=== PATIENT | female | born 1970 | race Caucasian/White ===

== ENCOUNTER 2017-10-19 06:58 | Emergency (ER) | payer OTHER, BC ==
[2015-02-27 22:50] VITALS: BMI 24.3
[~2017-10-19 06:58] MED LIST: PERCOCET 10/3251 TA1 PO
== END 2017-10-19 07:23 | disposition home or self-care (01) ==
LOC: D.ER 06:58
DX: J02.9 Acute pharyngitis, unspecified (principal); F17.200 Nicotine dependence, unspecified, uncomplicated

== ENCOUNTER 2018-10-18 19:08 | Observation (INO) | payer OTHER ==
[2018-10-18 19:45] LABS: BASOPHILS 0.7 % (0-2); EOSINOPHILS 3.5 % (0-7); HEMATOCRIT 27.4 % (36.0-48.0); HEMOGLOBIN 7.9 g/dL (12-16); IMMATURE GRANULOCYTES 0.2 % (0-5); LYMPHOCYTES 27.3 % (15-50); MCHC 28.8 g/dL (31.0-37.0); MCV 57.2 fL (80.0-100.0); MONOCYTES 12.2 % (2-11); NEUTROPHILS 56.1 % (40-80); RBC 4.79 10x6/uL (4.00-5.40); RDW 20.2 % (11.5-14.5); WBC 9.5 10x3/uL (4.8-10.8)
[2018-10-18 19:53] LABS: MCH 16.5 pg (26.0-34.0); PLATELET COUNT 503 10x3/uL (130-400)
[2018-10-18 19:59] LABS: ALBUMIN 3.2 g/dL (3.4-5.0); ALKALINE PHOSPHATASE 83 U/L (46-116); ALT (SGPT) 29 U/L (10-68); BILIRUBIN - TOTAL 0.16 mg/dL (0.2-1.3); CALC OSMOLALITY 287 mosm/kg (275-300); CALCIUM 8.2 mg/dL (8.5-10.1); CARBON DIOXIDE 26.2 mmol/L (21.0-32.0); CHLORIDE - SERUM 109 mmol/L (98-107); CREATININE - SERUM 0.9 mg/dL (0.6-1.3); GLUCOSE 107 mg/dL (74-106); POTASSIUM - SERUM 3.6 mmol/L (3.5-5.1); PROTEIN - SERUM 6.3 g/dL (6.4-8.2); SODIUM 142 mmol/L (136-145); UREA NITROGEN 27 mg/dL (7-18); eGFR NON AFRICAN AMERICAN 70 mL/min (90-120)
[2018-10-18 20:03] LABS: AMYLASE - SERUM 41 U/L (25-115); LIPASE 252 U/L (73-393)
[2018-10-18 20:04] LABS: TROPONIN-I < 0.017 ng/mL (0.000-0.060)
--- NOTE | 2018-10-18 20:08 | NUR ---
PT LEFT ED VIA STRETCHER FOR CT.
--- NOTE | 2018-10-18 20:36 | NUR ---
PT RETURNED FROM CT VIA STRETCHER.
--- NOTE | 2018-10-18 21:16 | NUR ---
PT AMBULATED TO RESTROOM. PT REPORTS SHE WAS UNABLE PROVIDE URINE SPECIMEN. EDP NOTIFIED.
[2018-10-18 21:30] VITALS: BP 115/59
--- NOTE | 2018-10-18 22:02 | NUR ---
PT RESTING ON BED, NO S/S OF ACUTE DISTRESS NOTED. PT FAMILY AT BEDSIDE.
--- NOTE | 2018-10-18 22:23 | NUR ---
PT AMBULATED TO RESTROOM WITH A STEADY GAIT. PT URINE SPECIMEN SENT TO LAB.
[2018-10-18 22:34] LABS: APPEARANCE CLEAR (CLEAR); BILIRUBIN NEGATIVE (NEGATIVE); COLOR YELLOW (YELLOW); GLUCOSE NEGATIVE (NEGATIVE); KETONE NEGATIVE (NEGATIVE); NITRITE NEGATIVE (NEGATIVE); PROTEIN NEGATIVE (NEGATIVE); SPECIFIC GRAVITY 1.015 (1.005-1.020); UROBILINOGEN NORMAL (NORMAL); WHITE CELLS - URINE OCC /hpf (0-5)
[2018-10-18 22:35] LABS: EPITHELIAL CELLS 0-5 /hpf (0-5); RED CELLS - URINE 0-5 /hpf (0-5)
--- NOTE | 2018-10-19 00:20 | NUR ---
RECEIVED PT TO FLOOR FROM ER VIA WHEELCHAIR. REVIEWED HOME MEDS AND HISTORY. VITALS SIGNS STABLE. COMPLETE ASSESSMENT PER FLOW-SHEET. PT FINISHED MAG CITRATE AND ATE HALF SANDWICH. NO OTHER NEEDS. FAMILY LEFT FOR THE NIGHT. PT SIGNED BLOOD CONSENT FOR TRANSFUSION. PT FALLING ASLEEP. LAB TO CALL WHEN BLOOD IS READY. WILL CONTINUE TO MONITOR.
[2018-10-19] MEDS ORDERED: IBUPROFEN600 MG PO (00:22)
[2018-10-19 00:46] LABS: % SATURATION 4 % (15-55); IRON 16 ug/dl (35-150); TOTAL IRON BIND CAPACITY 400 ug/dl (260-445); UNSAT IRON BIND CAPACITY 384 ug/dl (150-375)
--- NOTE | 2018-10-19 01:50 | NUR ---
PRBC INFUSION STARTED. VITALS SIGNS STABLE. PT SLEEPING. AFTER BLOOD INFUSING 15 MINUTES, VITALS SIGNS STABLE. INCREASED RATE OF INFUSION. NO S/S OF DISTRESS OR REACTION. WILL CONTINUE TO MONITOR.
[2018-10-19 02:09] VITALS: BP 139/68; BMI 24.3
[2018-10-19 06:36] LABS: BASOPHILS 0.7 % (0-2); EOSINOPHILS 4.8 % (0-7); HEMATOCRIT 28.4 % (36.0-48.0); HEMOGLOBIN 8.4 g/dL (12-16); IMMATURE GRANULOCYTES 0.1 % (0-5); LYMPHOCYTES 29.8 % (15-50); MCHC 29.6 g/dL (31.0-37.0); MCV 58.6 fL (80.0-100.0); MEAN PLATELET VOLUME 8.9 fL (7.4-10.4); MONOCYTES 10.8 % (2-11); NEUTROPHILS 53.8 % (40-80); PLATELET COUNT 440 10x3/uL (130-400); RBC 4.85 10x6/uL (4.00-5.40); RDW 22.6 % (11.5-14.5)
[2018-10-19 06:37] LABS: MCH 17.3 pg (26.0-34.0)
--- NOTE | 2018-10-19 07:29 | NUR ---
PT LYING IN BED, ACTIVE BOWEL SOUNDS X4. PT STATED HAD A BM THIS MORNING AND WAS A PRETY GOOD SIZE, PT IS PASSING A LOT OF GAS. INQUIRED ON WHEN BREAKFAST WAS SERVED STATED SHE IS STARVING. BED IN LOW POSITION, CL IN REACH. CONTINUE WITH PLAN OF CARE
[2018-10-19 10:35] LABS: ALBUMIN 2.9 g/dL (3.4-5.0); ALKALINE PHOSPHATASE 66 U/L (46-116); ALT (SGPT) 41 U/L (10-68); BILIRUBIN - TOTAL 0.21 mg/dL (0.2-1.3); CALC OSMOLALITY 281 mosm/kg (275-300); CALCIUM 7.8 mg/dL (8.5-10.1); CARBON DIOXIDE 21.6 mmol/L (21.0-32.0); CHLORIDE - SERUM 109 mmol/L (98-107); CREATININE - SERUM 0.8 mg/dL (0.6-1.3); GLUCOSE 71 mg/dL (74-106); POTASSIUM - SERUM 4.2 mmol/L (3.5-5.1); PROTEIN - SERUM 5.7 g/dL (6.4-8.2); SODIUM 141 mmol/L (136-145); UREA NITROGEN 22 mg/dL (7-18); eGFR NON AFRICAN AMERICAN 80 mL/min (90-120)
[2018-10-19 12:16] VITALS: BP 125/68
--- NOTE | 2018-10-19 13:10 | NUR ---
PT SITTING UP IN BED, NIECE AT BEDSIDE, REQUESTED PAIN MEDICINE, ADMINISTERED PRN PAIN MED. NO OTHER NEEDS VOICED, CONTINUE WITH PLAN OF CARE
[2018-10-19 16:40] VITALS: BP 140/70
--- NOTE | 2018-10-19 17:38 | NUR ---
UP AD KAYLAN. COMPLAINS OF ABDOMINAL PAIN AND RECEIVES MORPHINE PRN PAIN. SITS UP IN BED EATING DINNER. INSTRUCTED ON USE OF CALL LIGHT FOR ASSIST.
--- NOTE | 2018-10-19 18:40 | NUR ---
PATIENT IN BED WITH IV INTACT. NO COMPLAINTS OR SIGNS OF DISTRESS. CALL LIGHTS WITHIN REACH.
[2018-10-19 20:00] VITALS: BP 133/59
[2018-10-20] VITALS (7 sets, daily range): BP systolic 130–141; BP diastolic 58–76
[2018-10-20 04:36] LABS: BASOPHILS 0.4 % (0-2); EOSINOPHILS 3.4 % (0-7); HEMATOCRIT 28.1 % (36.0-48.0); HEMOGLOBIN 8.2 g/dL (12-16); IMMATURE GRANULOCYTES 0.2 % (0-5); LYMPHOCYTES 25.6 % (15-50); MCH 17.2 pg (26.0-34.0); MCHC 29.2 g/dL (31.0-37.0); MCV 58.9 fL (80.0-100.0); MEAN PLATELET VOLUME 9.4 fL (7.4-10.4); MONOCYTES 11.3 % (2-11); NEUTROPHILS 59.1 % (40-80); PLATELET COUNT 459 10x3/uL (130-400); RBC 4.77 10x6/uL (4.00-5.40); RDW 22.2 % (11.5-14.5); WBC 11.6 10x3/uL (4.8-10.8)
[2018-10-20 05:18] LABS: ALBUMIN 2.7 g/dL (3.4-5.0); ALKALINE PHOSPHATASE 69 U/L (46-116); ALT (SGPT) 37 U/L (10-68); BILIRUBIN - TOTAL 0.16 mg/dL (0.2-1.3); CALCIUM 7.7 mg/dL (8.5-10.1); CARBON DIOXIDE 25.2 mmol/L (21.0-32.0); CHLORIDE - SERUM 110 mmol/L (98-107); CREATININE - SERUM 0.8 mg/dL (0.6-1.3); PROTEIN - SERUM 5.5 g/dL (6.4-8.2); SODIUM 142 mmol/L (136-145); eGFR NON AFRICAN AMERICAN 80 mL/min (90-120)
[2018-10-20 05:21] LABS: CALC OSMOLALITY 284 mosm/kg (275-300); GLUCOSE 114 mg/dL (74-106); POTASSIUM - SERUM 3.4 mmol/L (3.5-5.1); UREA NITROGEN 14 mg/dL (7-18)
[2018-10-20 12:32] LABS: PATH REVIEW PERIPHERAL SMEAR REVIEWED
--- NOTE | 2018-10-20 16:09 | NUR ---
DAUGHTER JAMIE HAS TAKEN RINGS X 2 WALLET AND PURSE WITH PT PERMISSION
--- NOTE | 2018-10-20 16:13 | NUR ---
PATIENT LEAVING FOR SURGERY STABLE AT THIS TIME.
--- NOTE | 2018-10-20 20:30 | NUR ---
PT LYING IN BED ASLEEP, NO SIGNS OF DISTRESS. AWAKENS TO VERBAL STIMULI. ALERT AND ORIENTED. STATES PAIN IN ABD 08/11. GAVE MORPHINE ORDERED. 3 LAP INCISIONS TO ABD W/ DRESSINGS CDI. IV RIGHT FA INFUSING NS @ 125. NO OTHER NEEDS OR COMPLAINTS AT THIS TIME. CL IN REACH
--- NOTE | 2018-10-21 00:15 | NUR ---
PT STATES PAIN 07/11. GAVE PERCOCET ORDERED. NO OTHER NEEDS OR COMPLAINTS AT THIS TIME. CL IN REACH
[2018-10-21 02:35] VITALS: BP 145/67
[2018-10-21 05:01] VITALS: BP 130/64
[2018-10-21 06:57] LABS: ALBUMIN 2.4 g/dL (3.4-5.0); ALKALINE PHOSPHATASE 78 U/L (46-116); ALT (SGPT) 30 U/L (10-68); CALC OSMOLALITY 281 mosm/kg (275-300); CALCIUM 7.9 mg/dL (8.5-10.1); CHLORIDE - SERUM 110 mmol/L (98-107); CREATININE - SERUM 0.8 mg/dL (0.6-1.3); GLUCOSE 89 mg/dL (74-106); POTASSIUM - SERUM 4.2 mmol/L (3.5-5.1); PROTEIN - SERUM 5.4 g/dL (6.4-8.2); SODIUM 142 mmol/L (136-145); UREA NITROGEN 12 mg/dL (7-18); eGFR NON AFRICAN AMERICAN 80 mL/min (90-120)
[2018-10-21 06:58] LABS: BASOPHILS 0.5 % (0-2); EOSINOPHILS 2.7 % (0-7); HEMATOCRIT 28.9 % (36.0-48.0); HEMOGLOBIN 8.3 g/dL (12-16); IMMATURE GRANULOCYTES 0.2 % (0-5); LYMPHOCYTES 24.6 % (15-50); MCHC 28.7 g/dL (31.0-37.0); MCV 59.5 fL (80.0-100.0); PLATELET COUNT 426 10x3/uL (130-400); RBC 4.86 10x6/uL (4.00-5.40); RDW 22.8 % (11.5-14.5); WBC 9.6 10x3/uL (4.8-10.8)
[2018-10-21 07:04] LABS: MCH 17.1 pg (26.0-34.0)
[2018-10-21 07:34] LABS: FOLATE (FOLIC ACID) - SERUM 5.2 ng/mL (>3.0)
--- NOTE | 2018-10-21 08:08 | NUR ---
PT LYING IN BED ON RT SIDE, EVEN RISE AND FALL OF CHEST, EASILY AWAKENED FOR ASSESSMENT. NO NEEDS VOICED CONTINUE WITH PLAN OF CARE
[2018-10-21 09:59] VITALS: BP 128/65
--- NOTE | 2018-10-21 10:56 | NUR ---
STRUCTURAL IRON WORKER NOTE-- PT PENDING DISCHARGE PER PRIMARY MD WILL CONITUE CARE PLAN UNTIL DISCHARGE.
[2018-10-21] MEDS ORDERED: HYDROCODON-ACE1 EAC7 PO (12:26)
[2018-10-21] MEDS ORDERED: MIRALAX17 GM PO (12:32)
--- NOTE | 2018-10-21 15:07 | NUR ---
PT DC HOME, WENT OVER PT DC INSTRUCTIONS, MEDS AND FOLLOW UP APPOINTMENTS. ALL QUESTIONS ASKED.
[2018-10-22 22:07] LABS: OVA + PARASITE EXAM Final report (())
--- NOTE | 2018-10-28 16:15 | OP ---
PATIENT NAME: JOSE OWUSU MEDICAL RECORD: [id number] :66 LOCATION:D.MS [id number] ADMISSION DATE:10/18/18 SURGEON: FOSTER SHAHID MD DATE OF OPERATION: 10/20/2018 PREOPERATIVE DIAGNOSES: 1. Right lower quadrant pain. 2. Ovarian mass. POSTOPERATIVE DIAGNOSES: 1. Right lower quadrant pain. 2. Right ovarian cyst. PROCEDURE PERFORMED: 1. Diagnostic laparoscopy. 2. Right salpingo-oophorectomy. 3. Left salpingectomy. SURGEON: Foster Shahid MD AUTOMATIC EMBROIDERY MACHINE TENDER: Kyaw Allred. ANESTHESIA: General. FINDINGS: Uterus is slightly enlarged and irregular contour consistent with fibroids. Both tubes are interrupted bilaterally, but appear otherwise unremarkable. Left ovary is unremarkable. Right ovary has a 5-cm simple appearing cyst. The pathology segments of right and left tube with right ovary, that specimens were removed SPECIMENS REMOVED: Right and left tube with right ovary. SPECIMEN DISPOSITION: Pathology. ESTIMATED BLOOD LOSS: Minimal. FLUIDS: 400 lactated Ringer's. URINE OUTPUT: Quantity sufficient void prior to this procedure. COMPLICATIONS: None. DRAINS: None. INDICATIONS: The patient is a 48-year-old female admitted to the hospital with right lower quadrant pain and constipation. The patient has had a bowel movement and continues to have pain. On further workup, the patient was found on CT and subsequent ultrasound to have a large simple appearing mass in the right adnexa. After discussion with the patient, she is consented for a diagnostic laparoscopy to address right lower quadrant pain and investigate mass. DESCRIPTION OF PROCEDURE: After informed consent was assured, the patient was taken to the operating room where anesthetic was obtained. The patient is now prepped and draped in the usual sterile fashion. Attention was directed to the OPERATIVE REPORT [id number] JOSE OWUSU umbilicus where an incision was made and a trocar inserted. Pneumoperitoneum was developed. Accessory ports were placed now in the midline. With the patient in Trendelenburg position and the bowel was swept free, the above findings were encountered. A second trocar was placed in the right lower quadrant. A grasper was inserted from the midline port and the hilum of the ovary grasped and the ovary is now elevated. Using the coagulation cutter, the infundibulopelvic ligament serially compressed, coagulated, and . This dissection was carried out underneath the ovary and concludes at the cornual region of the uterus, removing both tube and ovary of the right side. This is placed in an Endobag and the Endobag pulled into the 10-12 port, which is the midline port. Suction device was inserted after rupturing the cyst and the contents of the cyst extracted. The cyst and the ovary still contained within the Endobag is now removed from the abdomen. Specimen was passed from the field. The 10-12 trocar was reinserted after its removal with the ovarian mass and right tube. A grasper was now inserted and the left tube elevated from the midline. Using a coagulation cutter and starting at the cornual region, the ovary is removed from its attachment to left adnexa. The tube was removed and passed to the attendant. Pneumoperitoneum was released as the accessory trocars were removed. The primary trocar was now removed. All sites were closed with a subcuticular stitch and Dermabond. Sponge, lap, and needle counts correct times 2. The patient was awakened and went to the recovery area in stable condition. TRANSINT:[id number] Voice Confirmation ID: [id number] DOCUMENT ID: [id number] FOSTER SHAHID MD at 1615 CC: [id number] DICTATION DATE: 10/21/18915 PROFESSOR OF VOICE: 10/21/18 0949 DIS IN 10/21/18 [facility] [address] [place] [address]
== END 2018-10-21 15:14 | disposition home or self-care (01) ==
LOC: D.ER 19:08 → D.MS 23:25 → OBSVTIME 23:25 → D.MS 23:27 → D.ER 23:27 → D.MS 10-21 15:14
PROVIDERS: Family Medicine; Obstetrics & Gynecology; ADMIT Internal Medicine Nephrology
PROC: 0UT74ZZ Resection of Bilateral Fallopian Tubes, Percutaneous Endoscopic Approach (ICD-10-PCS; principal; 2018-10-20 17:00)
PROC: 0UT04ZZ Resection of Right Ovary, Percutaneous Endoscopic Approach (ICD-10-PCS; 2018-10-20 17:00)
DX: N83.201 Unspecified ovarian cyst, right side (principal); F17.213 Nicotine dependence, cigarettes, with withdrawal; D50.9 Iron deficiency anemia, unspecified; E11.9 Type 2 diabetes mellitus without complications; F41.9 Anxiety disorder, unspecified; R19.00 Intra-abdominal and pelvic swelling, mass and lump, unspecified site

== ENCOUNTER 2019-01-13 16:28 | Emergency (ER) | payer OTHER ==
[~2019-01-13] VITALS: Ht 172.7 cm; Wt 75.0 kg
[~2019-01-13 16:28] MED LIST changes: +HYDROCODON-ACE1 EAC7 PO; +IBUPROFEN600 MG PO; +MIRALAX17 GM PO
[2019-01-13 16:29] VITALS: Ht 172.7 cm; Wt 75.0 kg
[2019-01-13 16:56] LABS: BASOPHILS 1.1 % (0-2); EOSINOPHILS 4.6 % (0-7); HEMATOCRIT 31.3 % (36.0-48.0); HEMOGLOBIN 10.1 g/dL (12-16); IMMATURE GRANULOCYTES 0.1 % (0-5); MCH 20.2 pg (26.0-34.0); MCHC 32.3 g/dL (31.0-37.0); MCV 62.6 fL (80.0-100.0); MONOCYTES 14.1 % (2-11); NEUTROPHILS 54.1 % (40-80); PLATELET COUNT 421 10x3/uL (130-400); RDW 20.9 % (11.5-14.5); WBC 7.4 10x3/uL (4.8-10.8)
[2019-01-13 17:20] LABS: ALKALINE PHOSPHATASE 80 U/L (46-116); ALT (SGPT) 32 U/L (10-68); BILIRUBIN - TOTAL 0.27 mg/dL (0.2-1.3); CALC OSMOLALITY 286 mosm/kg (275-300); CALCIUM 7.7 mg/dL (8.5-10.1); CARBON DIOXIDE 25.3 mmol/L (21.0-32.0); CHLORIDE - SERUM 110 mmol/L (98-107); CREATININE - SERUM 0.7 mg/dL (0.6-1.3); GLUCOSE 94 mg/dL (74-106); POTASSIUM - SERUM 4.2 mmol/L (3.5-5.1); SODIUM 143 mmol/L (136-145); UREA NITROGEN 18 mg/dL (7-18); eGFR NON AFRICAN AMERICAN > 90 mL/min (90-120)
[2019-01-13 17:34] LABS: CKMB 1.4 U/L (0.0-3.6); CREATINE KINASE 118 UL (21-215); TROPONIN-I < 0.017 ng/mL (0.000-0.060)
[2019-01-13 21:44] LABS: UDS - AMPHET POSITIVE QUAL (NEGATIVE); UDS - BARB NEGATIVE QUAL (NEGATIVE); UDS - BENZO NEGATIVE QUAL (NEGATIVE); UDS - COCAINE NEGATIVE QUAL (NEGATIVE); UDS - OPIATE NEGATIVE QUAL (NEGATIVE); UDS - PCP NEGATIVE QUAL (NEGATIVE); UDS - THC NEGATIVE QUAL (NEGATIVE)
[2019-01-13] MEDS ORDERED: EZFE 200200 MG PO (22:45)
[2019-01-13 23:13] VITALS: BP 122/79
== END 2019-01-13 22:58 | disposition home or self-care (01) ==
LOC: D.ER 16:28
PROVIDERS: Family Medicine
DX: R53.1 Weakness (principal); D50.9 Iron deficiency anemia, unspecified

== ENCOUNTER 2019-02-22 13:04 | Emergency (ER) | payer OTHER ==
[~2019-02-22] VITALS: Ht 172.7 cm; Wt 79.5 kg
[~2019-02-22 13:04] MED LIST changes: +EZFE 200200 MG PO
[2019-02-22 13:11] VITALS: Ht 172.7 cm; Wt 79.5 kg
[2019-02-22 13:28] LABS: APPEARANCE CLEAR (CLEAR); BILIRUBIN NEGATIVE (NEGATIVE); COLOR STRAW (YELLOW); GLUCOSE NEGATIVE (NEGATIVE); KETONE NEGATIVE (NEGATIVE); NITRITE NEGATIVE (NEGATIVE); PROTEIN NEGATIVE (NEGATIVE)
[2019-02-22 13:52] LABS: BASOPHILS 0.8 % (0-2); HEMATOCRIT 31.8 % (36.0-48.0); HEMOGLOBIN 10.1 g/dL (12-16); IMMATURE GRANULOCYTES 0.2 % (0-5); MCH 20.1 pg (26.0-34.0); MCHC 31.8 g/dL (31.0-37.0); MCV 63.3 fL (80.0-100.0); MEAN PLATELET VOLUME 9.2 fL (7.4-10.4); MONOCYTES 11.6 % (2-11); NEUTROPHILS 58.4 % (40-80); PLATELET COUNT 495 10x3/uL (130-400); RBC 5.02 10x6/uL (4.00-5.40); RDW 17.2 % (11.5-14.5)
[2019-02-22 14:14] LABS: ALBUMIN 2.9 g/dL (3.4-5.0); ALKALINE PHOSPHATASE 88 U/L (46-116); ALT (SGPT) 36 U/L (10-68); BILIRUBIN - TOTAL 0.26 mg/dL (0.2-1.3); CALC OSMOLALITY 287 mosm/kg (275-300); CALCIUM 7.8 mg/dL (8.5-10.1); CHLORIDE - SERUM 110 mmol/L (98-107); CREATININE - SERUM 0.8 mg/dL (0.6-1.3); GLUCOSE 71 mg/dL (74-106); POTASSIUM - SERUM 3.6 mmol/L (3.5-5.1); PROTEIN - SERUM 6.3 g/dL (6.4-8.2); SODIUM 145 mmol/L (136-145); UREA NITROGEN 16 mg/dL (7-18); eGFR NON AFRICAN AMERICAN 80 mL/min (90-120)
[2019-02-22 14:20] LABS: CARBON DIOXIDE 25.7 mmol/L (21.0-32.0)
[2019-02-22] MEDS ORDERED: ZOFRAN ODT4 MG/UDTAB PO (17:06)
[2019-02-22] MEDS ORDERED: TAMIFLU75 MG PO (17:06)
[2019-02-22 17:38] VITALS: BP 161/80
== END 2019-02-22 17:39 | disposition home or self-care (01) ==
LOC: D.ER 13:04
PROVIDERS: Family Medicine
DX: B34.9 Viral infection, unspecified (principal); E86.0 Dehydration; R11.2 Nausea with vomiting, unspecified

== ENCOUNTER 2019-04-06 01:43 | Inpatient (IN) | payer OTHER ==
[~2019-04-06] VITALS: Ht 172.7 cm; Wt 78.6 kg
[2019-04-06] VITALS (7 sets, daily range): BP systolic 86–136; BP diastolic 32–71; Ht 172.7 cm; Wt 78.6 kg
--- NOTE | ~2019-04-06 | EC ---
PATIENT:JOSE OWUSU DATE OF SERVICE: 04/06/19 SEX: F MEDICAL RECORD: [id number] DATE OF : [birth year] LOCATION:D.M2 D.212 AGE OF PATIENT: 48 ADMISSION DATE: 04/06/19 REFERRING PHYSICIAN: INTERPRETING PHYSICIAN: AKIL GAONA MD ECHOCARDIOGRAM REPORT ECHO CHARGES 4 ECHO COMPLETE Date: 04/07/19 CLINICAL DIAGNOSIS: CHF ECHOCARDIOGRAPHIC MEASUREMENTS (adult normal given) AC root (d.<3.7cm) 3.7 cm LV Septum d (<1.2 cm> 0.6 cm Valve Excursion 1.9 cm LV Septum (systole) 1.1 cm Left Atria (s.<4.0cm> 2.9 cm LVPW d(<1.2cm) 0.9 cm RV (d.<2.3cm) 2.7 cm LVPW (sytole) 1.5 cm LV diastole(<5.6CM) 6.6 cm MV E-F(>70mm/sec) cm LV systole 4.7 cm LVOT Diameter 1.6 cm MV exc.(>10mm) cm Est.ejection fraction (50-75%) % DOPPLER: LVIT cm/sec A 91 cm/sec E 106 cm/sec LA cm/sec RVSP 32.8 mmHg LVOT 105 cm/sec AOP1/2T m/s Asc. Ao 161 cm/sec RVOT 64 cm/sec RA cm/sec PA 97 cm/sec AV Gradient Peak 10.4 mmHg AV Mean 6.7 mmHg AV Area cm MV Gradient Peak 6.3 mmHg MV Mean 2.2 mmHg MV Area cm COMMENTS: Shopper: Emelia FUENTES Bow Maker Machine Tender: Tramaine Gaona TAPE# PACS Pericardial Effusion N DATE OF SERVICE: 04/06/2019 FINDINGS: 1. Left ventricular chamber size is mildly dilated. Left ventricular systolic function is preserved. Overall ejection fraction is estimated at 60%. 2. Left atrium is within normal limits. Right atrium and right ventricular chamber sizes are as well within normal limit. 3. Valvular structures have normal structure and motion. 4. Doppler interrogation reveals mild aortic insufficiency, mild mitral regurgitation, and mild tricuspid regurgitation. No other valvular ECHOCARDIOGRAM REPORT [id number] JOSE OWUSU insufficiency or stenosis. Pulmonary systolic pressure is normal, estimated at 33 mmHg. 5. No evidence of pericardial effusion or left ventricular thrombus. TRANSINT:[id number] Voice Confirmation ID: [id number] DOCUMENT ID: [id number] AKIL GAONA MD CC: [id number] DICTATION DATE: 04/07/19 1216 STANDARDS ANALYST: 04/07/19 1238 ADM IN [facility] [address] [place] [place] [id number]
[~2019-04-06 01:43] MED LIST changes: +TAMIFLU75 MG PO; +ZOFRAN ODT4 MG/UDTAB PO
[2019-04-06 02:23] LABS: BASOPHILS 0.2 % (0-2); EOSINOPHILS 0.5 % (0-7); HEMATOCRIT 31.8 % (36.0-48.0); HEMOGLOBIN 10.4 g/dL (12-16); IMMATURE GRANULOCYTES 0.3 % (0-5); LYMPHOCYTES 11.2 % (15-50); MCHC 32.7 g/dL (31.0-37.0); MCV 61.2 fL (80.0-100.0); MEAN PLATELET VOLUME 9.7 fL (7.4-10.4); MONOCYTES 13.2 % (2-11); NEUTROPHILS 74.6 % (40-80); PLATELET COUNT 529 10x3/uL (130-400); RDW 16.3 % (11.5-14.5); WBC 17.4 10x3/uL (4.8-10.8)
[2019-04-06 02:41] LABS: APTT 33.8 SECONDS (22.8-39.4); INR 1.06 (0.85-1.17); PROTIME 13.3 SECONDS (11.6-15.0)
[2019-04-06 02:42] LABS: D-DIMER-QUANTITATIVE 2.7 ug/mLFEU (0.20-0.54)
[2019-04-06 02:43] LABS: ALBUMIN 3.1 g/dL (3.4-5.0); ALKALINE PHOSPHATASE 106 U/L (46-116); ALT (SGPT) 31 U/L (10-68); BILIRUBIN - TOTAL 0.44 mg/dL (0.2-1.3); CALC OSMOLALITY 278 mosm/kg (275-300); CALCIUM 8.4 mg/dL (8.5-10.1); CARBON DIOXIDE 25.2 mmol/L (21.0-32.0); CHLORIDE - SERUM 100 mmol/L (98-107); CREATININE - SERUM 0.9 mg/dL (0.6-1.3); POTASSIUM - SERUM 3.1 mmol/L (3.5-5.1); PROTEIN - SERUM 7.4 g/dL (6.4-8.2); SODIUM 138 mmol/L (136-145); UREA NITROGEN 17 mg/dL (7-18); eGFR NON AFRICAN AMERICAN 70 mL/min (90-120)
[2019-04-06 02:44] LABS: GLUCOSE 119 mg/dL (74-106)
[2019-04-06 02:54] LABS: CKMB 1.5 U/L (0.0-3.6); CREATINE KINASE 205 UL (21-215); PRO BNP 538 pg/mL (0-125)
[2019-04-06 02:55] LABS: TROPONIN-I < 0.017 ng/mL (0.000-0.060)
[2019-04-06 17:31] LABS: % SATURATION 3 % (15-55); IRON 13 ug/dl (35-150); TOTAL IRON BIND CAPACITY 355 ug/dl (260-445); UNSAT IRON BIND CAPACITY 342 ug/dl (150-375)
[2019-04-07 00:53] VITALS: BP 121/64
[2019-04-07 04:14] VITALS: BP 119/67
[2019-04-07 04:46] LABS: UDS - AMPHET POSITIVE QUAL (NEGATIVE); UDS - BARB NEGATIVE QUAL (NEGATIVE); UDS - BENZO NEGATIVE QUAL (NEGATIVE); UDS - COCAINE NEGATIVE QUAL (NEGATIVE); UDS - OPIATE POSITIVE QUAL (NEGATIVE); UDS - PCP NEGATIVE QUAL (NEGATIVE); UDS - THC NEGATIVE QUAL (NEGATIVE)
[2019-04-07 06:21] LABS: BASOPHILS 0.1 % (0-2); EOSINOPHILS 0.2 % (0-7); HEMATOCRIT 27.1 % (36.0-48.0); HEMOGLOBIN 8.5 g/dL (12-16); IMMATURE GRANULOCYTES 0.3 % (0-5); LYMPHOCYTES 16.8 % (15-50); MCHC 31.4 g/dL (31.0-37.0); MCV 61.5 fL (80.0-100.0); MONOCYTES 9.8 % (2-11); NEUTROPHILS 72.8 % (40-80); PLATELET COUNT 513 10x3/uL (130-400); RBC 4.41 10x6/uL (4.00-5.40); RDW 16.4 % (11.5-14.5); WBC 15.6 10x3/uL (4.8-10.8)
[2019-04-07 06:59] LABS: MCH 19.3 pg (26.0-34.0)
[2019-04-07 07:04] LABS: CALC OSMOLALITY 289 mosm/kg (275-300); CALCIUM 8.3 mg/dL (8.5-10.1); CARBON DIOXIDE 23.9 mmol/L (21.0-32.0); CHLORIDE - SERUM 112 mmol/L (98-107); CREATININE - SERUM 0.8 mg/dL (0.6-1.3); GLUCOSE 105 mg/dL (74-106); POTASSIUM - SERUM 3.4 mmol/L (3.5-5.1); SODIUM 145 mmol/L (136-145); UREA NITROGEN 16 mg/dL (7-18); eGFR NON AFRICAN AMERICAN 80 mL/min (90-120)
[2019-04-07 08:00] VITALS: BP 133/71
[2019-04-07] MEDS ORDERED: OMNICEF300 MG PO (10:18)
[2019-04-07] MEDS ORDERED: ZITHROMAX500 MG PO (10:18)
[2019-04-07] MEDS ORDERED: PULMICORT0.5 MG/21 UPD (10:19)
--- NOTE | 2019-04-07 10:44 | MORECARE ---
CASE MANAGEMENT DISCHARGE SUMMARY PATIENT: JOSE OWUSU UNIT: [id number] ADM DATE: 04/06/19 AGE: 48 : [birth year] SEX: F ROOM/BED: D.9034 AUTHOR: SJ,DOC PHYSICIAN: REFERRING PHYSICIAN: ELLEN CONTRERAS MD DATE OF SERVICE: 04/07/19 Discharge Plan Patient Name: JOSE OWUSU Facility: [facility]:[place] : 1970 Planned Disposition: Home Anticipated Discharge Date: Discharge Date: Expected LOS: Initial Reviewer: [email or web address] Initial Review Date: 04/07/2019 Generated: 04/07/19 11:44 am Comments DCP- Discharge Planning Updated by [email or web address]: Natalie Soliman on 04/07/19 9:[address] Patient Name: JOSE OWUSU Admission Status: ER Accout number: [id number] Admission Date: 04-06-2019 : 1970 Admission Diagnosis: Attending: ELLEN CONTRERAS Current LOS: 1 Anticipated DC Date: Planned Disposition: Home Primary Insurance: [facility] Discharge Planning Comments: CM met with patient about discharge planning. CM explained CM role and verbal consent was given to do dc assessment. CM educated on Home Health, DME and rehab services that are available. Patient states her discharge plan is to return to home . States home environment is safe for dc. Denies any discharge planning needs at this time. [facility] roommate [phone] her home upon discharge. CM will continue to follow and assist as needed with discharge planning needs. Pipe Inspector: Natalie Soliman DCPIA - Discharge Planning Initial Assessment Updated by [email or web address]: Natalie Soliman on 04/07/19 10:42 am * Is the patient Alert and Oriented? Yes * How many steps to enter\exit or inside your home? na * PCP emilia * Pharmacy [facility] [address] * Preadmission Environment Home with Family * ADLs Independent * Verbal permission to speak to the caregivers and representatives has been obtained from the patient. N/A * Community resources currently utilized None * Additional services required to return to the preadmission environment? No * Can the patient safely return to the preadmission environment? Yes * Has this patient been hospitalized within the prior 30 days at any hospital? No Patient Name: JOSE OWUSU Page [phone] at 1044 All edits/amendments must be made on the electronic document DICTATION DATE: 04/07/191042 TELECOMMUNICATIONS ENGINEER: GURPREET 04/07/19 1043 RPT#: [id number] DC DATE: STATUS: ADM IN [facility] [address] [place] [address] END OF REPORT
--- NOTE | 2019-04-07 11:17 | MORECARE ---
CASE MANAGEMENT DISCHARGE SUMMARY PATIENT: JOSE OWUSU UNIT: [id number] ADM DATE: 04/06/19 AGE: 48 : [birth year] SEX: F ROOM/BED: D.2630 AUTHOR: SJ,DOC PHYSICIAN: REFERRING PHYSICIAN: ELLEN CONTRERAS MD DATE OF SERVICE: 04/07/19 Discharge Plan Patient Name: JOSE OWUSU Facility: [facility]:[place] : 1970 Planned Disposition: Home Anticipated Discharge Date: Discharge Date: Expected LOS: Initial Reviewer: [email or web address] Initial Review Date: 04/07/2019 Generated: 04/07/19 12:17 pm Comments DCP- Discharge Planning Updated by [email or web address]: Robb Bush on 04/07/19 10:[address] Patient Name: JOSE OWUSU Encounter No: [id number] : 1970 Primary Insurance: [employer] Anticipated DC Date: Planned Disposition: Home DCP follow-up note: CM ADVISED BY OIL WELL PERFORATOR OPERATOR NURSE THAT PT HAS NEBULIZED MEDICATION ON DISCHARGE MEDCATION LIST, CM NOTE DOES NOT INDICATE IF PT HAS NEBULIZER AT HOME. CM MET WITH PT IN ROOM, DISCUSSED POSSIBILITY OF NEEDING NEBULIZER, PT REPORTS HAVING NO MEDICAL EQUIPMENT AT HOME AND HAS NO PREFERENCE ON PROVIDER. PROVIDER LISTING GIVEN, PT SIGNED CONSENT FOR NO PREFERENCE ON PROVIDER IF SHE NEEDS NEBULIZER. CM SPOKE TO DR. CANALES WHO INFORMED CM THAT HE WOULD NEED TO LOOK AT IT HE IS NOT SURE PT WILL NEED THE NEBULIZED MEDICATION AT HOME; DR. CANALES REFERRED CM TO DR. CASTLE IF THEY FEEL PT NEEDS NEBULIZER AND NEB MEDICATIONS. CM NOTIFIED OIL WELL PERFORATOR OPERATOR NURSE WHO NOTIFIED PRIMARY CARE TEAM. PT DENIES NEEDS, REPORTS PLAN TO DRIVE SELF HOME AT DISCHARGE TODAY. IF IT IS DETERMINED THAT PT NEEDS NEBULIZER AND NEBULIZER MEDICATIONS CM WILL ARRANGE WITH Robb ROMAN, CASE MANAGEMENT DCP- Discharge Planning Updated by [email or web address]: Natalie Soliman on 04/07/19 9:[address] Patient Name: JOSE OWUSU Admission Status: ER Accout number: [id number] Admission Date: 04-06-2019 : 1970 Admission Diagnosis: Attending: ELLEN CONTRERAS Current LOS: 1 Anticipated DC Date: Planned Disposition: Home Primary Insurance: [employer] Discharge Planning Comments: CM met with patient about discharge planning. CM explained CM role and verbal consent was given to do dc assessment. CM educated on Home Health, DME and rehab services that are available. Patient states her discharge plan is to return to home . [facility] home environment is safe for dc. Denies any discharge planning needs at this time. [facility] roommate [phone] her home upon discharge. CM will continue to follow and assist as needed with discharge planning needs. [place] Weaver: Natalie Soliman DCPIA - Discharge Planning Initial Assessment Updated by [id number]: Natalie Soliman on 04/07/19 10:42 am * Is the patient Alert and Oriented? Yes * How many steps to enter\exit or inside your home? na * PCP emilia * Pharmacy [facility] [address] * Preadmission Environment Home with Family * ADLs Independent * Verbal permission to speak to the caregivers and representatives has been obtained from the patient. N/A * Community resources currently utilized None * Additional services required to return to the preadmission environment? No * Can the patient safely return to the preadmission environment? Yes * Has this patient been hospitalized within the prior 30 days at any hospital? No Coverage Notice Reviewer: [id number] Maria Eugenia Bush Notice Issued Date-Time: 04/07/2019 10:45 Notice Type: Patient Choice Letter Notice Delivered To: Patient Relationship to Patient: Human Resource Officer Name: Delivery Method: HAND - Hand Delivered Char Days: Prior Verbal Notification: Recipient Understood Notice: Yes Recipient Signature: Yes Med Rec Note Co-signed by Attending: Coverage Notice Comment: NO COMPANY PREFERENCE FOR MEDICAL EQUIPMENT Last DP export: 04/07/19 9:44 am Patient Name: JOSE OWUSU Page [phone] at 1117 All edits/amendments must be made on the electronic document DICTATION DATE: 04/07/191115 SYRUP MAKER COOK: GURPREET 04/07/196 RPT#: [id number] DC DATE: STATUS: ADM IN [facility] [address] [place] [address] END OF REPORT
--- NOTE | 2019-04-07 11:49 | MORECARE ---
CASE MANAGEMENT DISCHARGE SUMMARY PATIENT: JOSE OWUSU UNIT: [id number] ADM DATE: 04/06/19 AGE: 48 : [birth year] SEX: F ROOM/BED: D.0609 AUTHOR: SJ,DOC PHYSICIAN: REFERRING PHYSICIAN: ELLEN CONTRERAS MD DATE OF SERVICE: 04/07/19 Discharge Plan Patient Name: JOSE OWUSU Facility: [facility]:[place] : 1970 Planned Disposition: Home Anticipated Discharge Date: 04/07/19 Discharge Date: Expected LOS: 1 Initial Reviewer: [email or web address] Initial Review Date: 04/07/2019 Generated: 04/07/19 12:49 pm Comments DCP- Discharge Planning Updated by [email or web address]: Robb Bush on 04/07/19 10:[address] Patient Name: JOSE OWUSU Encounter No: [id number] : 1970 Primary Insurance: [employer] Anticipated DC Date: Planned Disposition: Home DCP follow-up note: CM ADVISED BY MANAGER EDITORIAL NURSE THAT PT HAS NEBULIZED MEDICATION ON DISCHARGE MEDCATION LIST, CM NOTE DOES NOT INDICATE IF PT HAS NEBULIZER AT HOME. CM MET WITH PT IN ROOM, DISCUSSED POSSIBILITY OF NEEDING NEBULIZER, PT REPORTS HAVING NO MEDICAL EQUIPMENT AT HOME AND HAS NO PREFERENCE ON PROVIDER. PROVIDER LISTING GIVEN, PT SIGNED CONSENT FOR NO PREFERENCE ON PROVIDER IF SHE NEEDS NEBULIZER. CM SPOKE TO DR. CANALES WHO INFORMED CM THAT HE WOULD NEED TO LOOK AT IT HE IS NOT SURE PT WILL NEED THE NEBULIZED MEDICATION AT HOME; DR. CANALES REFERRED CM TO DR. CASTLE IF THEY FEEL PT NEEDS NEBULIZER AND NEB MEDICATIONS. CM NOTIFIED MANAGER EDITORIAL NURSE WHO NOTIFIED PRIMARY CARE TEAM. PT DENIES NEEDS, REPORTS PLAN TO DRIVE SELF HOME AT DISCHARGE TODAY. IF IT IS DETERMINED THAT PT NEEDS NEBULIZER AND NEBULIZER MEDICATIONS CM WILL ARRANGE WITH DEMETRIA MILES, Robb Bush, CASE MANAGEMENT Appended by Robb Bush on 04/07/2019 11:41 CDT: CM ADVISED THAT PT DOES NOT REQUIRE NEBULIZER FOR HOME USE. PT HAS NO IDENTIFIED DISCHARGE NEEDS. KENIA GARCIA DCP- Discharge Planning Updated by [email or web address]: Natalie Soliman on 04/07/19 9:[address] Patient Name: JOSE OWUSU Admission Status: ER Accout number: [id number] Admission Date: 04-06-2019 : 1970 Admission Diagnosis: Attending: ELLEN CONTRERAS Current LOS: 1 Anticipated DC Date: Planned Disposition: Home Primary Insurance: [employer] Discharge Planning Comments: CM met with patient about discharge planning. CM explained CM role and verbal consent was given to do dc assessment. CM educated on Home Health, DME and rehab services that are available. Patient states her discharge plan is to return to home . States home environment is safe for dc. Denies any discharge planning needs at this time. [facility] roommate [phone] her home upon discharge. CM will continue to follow and assist as needed with discharge planning needs. Motor Transport Inspector: Natalie SPARKS - Discharge Planning Initial Assessment Updated by [email or web address]: Natalie Soliman on 04/07/19 10:42 am * Is the patient Alert and Oriented? Yes * How many steps to enter\exit or inside your home? na * PCP emilia * Pharmacy [facility] [address] * Preadmission Environment Home with Family * ADLs Independent * Verbal permission to speak to the caregivers and representatives has been obtained from the patient. N/A * Community resources currently utilized None * Additional services required to return to the preadmission environment? No * Can the patient safely return to the preadmission environment? Yes * Has this patient been hospitalized within the prior 30 days at any hospital? No Coverage Notice Reviewer: [email or web address] Maria Eugenia Bush Notice Issued Date-Time: 04/07/2019 10:45 Notice Type: Patient Choice Letter Notice Delivered To: Patient Relationship to Patient: Steno Pool Supervisor Name: Delivery Method: HAND - Hand Delivered Char Days: Prior Verbal Notification: Recipient Understood Notice: Yes Recipient Signature: Yes Med Rec Note Co-signed by Attending: Coverage Notice Comment: NO COMPANY PREFERENCE FOR MEDICAL EQUIPMENT Last DP export: 04/07/19 10:17 am Patient Name: JOSE OWUSU Page [phone] at 1149 All edits/amendments must be made on the electronic document DICTATION DATE: 04/07/19 1149 OSD CLERK: GURPREET 04/07/19 1149 RPT#: [id number] DC DATE: STATUS: ADM IN [facility] [address] [place] [address] END OF REPORT
[2019-04-07 12:00] VITALS: BP 117/57
[2019-04-08 09:14] LABS: FOLATE (FOLIC ACID) - SERUM 6.6 ng/mL (>3.0)
== END 2019-04-07 13:29 | disposition home or self-care (01) | DRG 190 ==
LOC: D.ER 01:43 → D.M2 04:27
PROVIDERS: Family Medicine; Internal Medicine Nephrology; ADMIT Family Medicine; ATTEND Family Medicine
DX: J44.0 Chronic obstructive pulmonary disease with (acute) lower respiratory infection (principal); J18.1 Lobar pneumonia, unspecified organism; F17.213 Nicotine dependence, cigarettes, with withdrawal; Q89.01 Asplenia (congenital); J44.1 Chronic obstructive pulmonary disease with (acute) exacerbation; F32.9 Major depressive disorder, single episode, unspecified; F41.9 Anxiety disorder, unspecified; D50.9 Iron deficiency anemia, unspecified; E87.6 Hypokalemia; L40.9 Psoriasis, unspecified; M81.0 Age-related osteoporosis without current pathological fracture; F15.10 Other stimulant abuse, uncomplicated